=== PATIENT | female | born 1955 | race African-American/Black ===

== ENCOUNTER 2016-05-28 20:18 | Inpatient (IN) | payer MEDICARE, OTHER ==
[~2016-05-28] VITALS: Ht 175.3 cm; Wt 97.5 kg
[2016-05-29 04:15] VITALS: BP 145/75
[2016-05-29 08:00] VITALS: BP 153/93
[2016-05-29] MEDS: Heparin 5000 units/ml inj SUBQ SCH ×2 (09:00→20:39)
[2016-05-29] MEDS ORDERED: TRAZODONE HCL300 MG ORAL (11:03)
[2016-05-29] MEDS ORDERED: SENNA8.6 M2 PO (11:03)
[2016-05-29] MEDS ORDERED: NORCO 10-325 T1 EACH ORAL (11:03)
[2016-05-29] MEDS ORDERED: IBUPROFEN600 MG ORAL (11:03)
[2016-05-29] MEDS ORDERED: GABAPENTIN800 MG ORAL (11:03)
[2016-05-29 11:08] LABS: BASOPHILS % (AUTO) 1.2 % (0.0-2.0); EOSINOPHILS % (AUTO) 0.1 % (0.0-3.0); LYMPHOCYTES % (AUTO) 13.7 % (20.0-45.0); MEAN CORPUSCULAR HEMOGLOBIN 32.9 PG (27.0-31.0); MEAN CORPUSCULAR HGB CONC 33.8 G/DL (32.0-36.0); MEAN CORPUSCULAR VOLUME 97 FL (80-99); MEAN PLATELET VOLUME 6.5 FL (6.5-10.1); PLATELET COUNT 239 K/UL (150-450); RED BLOOD COUNT 4.68 M/UL (4.20-5.40); RED CELL DISTRIBUTION WIDTH 12.7 % (11.6-14.8); WHITE BLOOD COUNT 7.9 K/UL (4.8-10.8)
[2016-05-29] MEDS: NovoLOG Insulin Flexpen SUBQ SCH ×3 (11:48→20:38)
[2016-05-29 12:00] VITALS: BP 143/68
[2016-05-29 12:08] LABS: TROPONIN I < 0.30 ng/mL (<=0.30)
[2016-05-29] MEDS ORDERED: Norco 10mg/325mg tab ORAL PRN (12:15)
--- NOTE | 2016-05-29 12:22 | Consultation ---
History of Present Illness General Date patient seen: May 29, 2016 Chief Complaint: ALOC Referring physician: Dr. Streeter Reason for Consultation: inpatient management Present Illness HPI 60 year old female with hx of ETOH abuse and chronic back pain, who was found altered by her daughter. She was taken by paramedics to [facility] for further evaluation. Her CT of head was negative and apparently her etoh level was low too. Allergies: Coded Allergies: No Known Allergies (Unverified , 05/29/16) Medication History Scheduled Gabapentin* (Gabapentin*), 800 MG ORAL THREE TIMES A DAY, (Reported) Trazodone Hcl (Trazodone Hcl), 300 MG ORAL BEDTIME, (Reported) Scheduled PRN Hydrocodone Bit/Acetaminophen 10-325* ([place] 10-325*), 1 TAB ORAL Q4H PRN for For Pain, (Reported) Ibuprofen* (Motrin*), 800 MG ORAL THREE TIMES A DAY PRN for For Pain, (Reported) Sennosides (Senna), 8.6 MG PO TWICE A DAY PRN for Constipation, (Reported) Patient History Healthcare decision maker Resuscitation status Full Code Advanced Directive on File Past Medical/Surgical History Past Medical/Surgical History: (1) Back pain (2) ETOH abuse Review of Systems All Other Systems: negative except mentioned in HPI Physical Exam Lines, tubes and drains: peripheral HEENT: atraumatic, anicteric Neck: non-tender, normal alignment Respiratory/Chest: chest wall non-tender, lungs clear, decreased breath sounds Cardiovascular/Chest: normal peripheral pulses, normal rate, regular rhythm, no gallop/murmur Abdomen: normal bowel sounds, non tender Last 24 Hour Vital Signs Date Time Temp Pulse Resp B/P Pulse Ox O2 Delivery O2 Flow Rate FiO2 05/29/16 08:31 91 153/73 05/29/16 08:00 63 05/29/16 08:00 96.8 91 18 153/93 97 05/29/16 04:15 59 05/29/16 04:15 98.6 64 20 145/75 96 Room Air Intake and Output 05/28/16 05/29/16 19:00 07:00 Output Total 200 ml Balance -200 ml Output Urine Total 200 ml # Bowel Movements 2 Laboratory Tests Test 05/29/16 10:35 White Blood Count 7.9 K/UL (4.8-10.8) Red Blood Count 4.68 M/UL (4.20-5.40) Hemoglobin 15.4 G/DL (12.0-16.0) Hematocrit 45.6 % (37.0-47.0) Mean Corpuscular Volume 97 FL (80-99) Mean Corpuscular Hemoglobin 32.9 PG (27.0-31.0) H Mean Corpuscular Hemoglobin Concent 33.8 G/DL (32.0-36.0) Red Cell Distribution Width 12.7 % (11.6-14.8) Platelet Count 239 K/UL (150-450) Mean Platelet Volume 6.5 FL (6.5-10.1) Neutrophils (%) (Auto) 79.0 % (45.0-75.0) H Lymphocytes (%) (Auto) 13.7 % (20.0-45.0) L Monocytes (%) (Auto) 6.0 % (1.0-10.0) Eosinophils (%) (Auto) 0.1 % (0.0-3.0) Basophils (%) (Auto) 1.2 % (0.0-2.0) Sodium Level Pending Potassium Level Pending Chloride Level Pending Carbon Dioxide Level Pending Blood Urea Nitrogen Pending Creatinine Pending Estimat Glomerular Filtration Rate Pending Glucose Level Pending Calcium Level Pending Phosphorus Level Pending Magnesium Level Pending Ammonia Pending Troponin I < 0.30 ng/mL (<=0.30) Pro-B-Type Natriuretic Peptide Pending Height (Feet): 5 Height (Inches): 9.00 Weight (Pounds): 215 Medications Current Medications Medications (Trade) Dose Ordered Sig/Dustin Route PRN Reason Start Time Stop Time Status Last Admin Dose Admin Acetaminophen (Tylenol) 650 mg Q4H PRN ORAL Mild Pain/Temp > 100.5 05/29/16 07:30 06/28/16 07:29 Acetaminophen/ Hydrocodone Bitart ([place] 10/325) 1 ea Q4H PRN ORAL Moderate Pain (Pain Scale 4-6) 05/29/16 12:15 06/05/16 12:14 Amlodipine Besylate (Norvasc) 5 mg DAILY ORAL 05/29/16 09:00 06/28/16 08:59 05/29/16 08:31 Clonidine HCl (Catapres) 0.1 mg Q4H PRN ORAL sbp more than 160 05/29/16 12:15 06/28/16 12:14 Dextrose (Dextrose 50%) STAT PRN IV Hypoglycemia 05/29/16 07:30 06/28/16 07:29 Gabapentin (Neurontin) 800 mg THREE TIMES A DAY ORAL 05/29/16 13:00 06/28/16 12:59 Heparin Sodium (Porcine) (Heparin 5000 units/ml) 5,000 units EVERY 12 HOURS SUBQ 05/29/16 09:00 06/28/16 08:59 Insulin Aspart (NovoLOG) BEFORE MEALS AND HS SUBQ 05/29/16 11:30 06/28/16 11:29 05/29/16 11:48 Trazodone HCl (Desyrel) 300 mg BEDTIME ORAL 05/29/16 21:00 06/28/16 20:59 Assessment/Plan Problem List: (1) Acute encephalopathy ICD Codes: G93.40 - Encephalopathy, unspecified SNOMED: 5003563 (2) Diarrhea ICD Codes: R19.7 - Diarrhea, unspecified SNOMED: 23737044 (3) Back pain ICD Codes: M54.9 - Dorsalgia, unspecified SNOMED: 443265568 (4) ETOH abuse ICD Codes: F10.10 - Alcohol abuse, uncomplicated SNOMED: 70032339, 70800157 Assessment/Plan close neuro f/u psych evaluation, Dr. Sage called anti-diarrhea med/surg check electrolytes can be discharged in 1-2 days. CARL LIZARRAGA May 29, 2016 12:22
[2016-05-29 12:25] LABS: MAGNESIUM 1.7 mg/dL (1.7-2.5)
[2016-05-29 12:27] LABS: ANION GAP 17 (5-15); CALCIUM 9.7 mg/dL (8.6-10.2); CARBON DIOXIDE 21 mEQ/L (20-30); CHLORIDE 102 mEQ/L (98-107); CREATININE 0.6 mg/dL (0.5-0.9); GLOMERULAR FILTRATION RATE > 60 mL/min (>60); HEMOLYSIS 10; POTASSIUM 4.1 mEQ/L (3.4-4.9); SODIUM 140 mEQ/L (135-145)
[2016-05-29] MEDS ORDERED: Lomotil 2.5mg tab ORAL PRN (13:00)
[2016-05-29] MEDS ORDERED: Phospha 250 Neutral tab ORAL ONE (14:00)
[2016-05-29 15:48] VITALS: BP 167/89
--- NOTE | 2016-05-29 15:50 | History & Physical ---
History and Physical History & Physicial Dictated for Int Med-Dr Albrecht no. [id number]. NATALIO WHITTINGTON May 29, 2016 15:50
--- NOTE | 2016-05-29 17:12 | Neurology Progress Note ---
Objective Physical Exam Last Vital Signs Date Time Temp Pulse Resp B/P Pulse Ox O2 Delivery O2 Flow Rate FiO2 05/29/16 15:48 97.8 89 21 167/89 97 Room Air Laboratory Tests Test 05/29/16 10:35 White Blood Count 7.9 K/UL (4.8-10.8) Red Blood Count 4.68 M/UL (4.20-5.40) Hemoglobin 15.4 G/DL (12.0-16.0) Hematocrit 45.6 % (37.0-47.0) Mean Corpuscular Volume 97 FL (80-99) Mean Corpuscular Hemoglobin 32.9 PG (27.0-31.0) H Mean Corpuscular Hemoglobin Concent 33.8 G/DL (32.0-36.0) Red Cell Distribution Width 12.7 % (11.6-14.8) Platelet Count 239 K/UL (150-450) Mean Platelet Volume 6.5 FL (6.5-10.1) Neutrophils (%) (Auto) 79.0 % (45.0-75.0) H Lymphocytes (%) (Auto) 13.7 % (20.0-45.0) L Monocytes (%) (Auto) 6.0 % (1.0-10.0) Eosinophils (%) (Auto) 0.1 % (0.0-3.0) Basophils (%) (Auto) 1.2 % (0.0-2.0) Sodium Level 140 mEQ/L (135-145) Potassium Level 4.1 mEQ/L (3.4-4.9) Chloride Level 102 mEQ/L (98-107) Carbon Dioxide Level 21 mEQ/L (20-30) Anion Gap 17 (5-15) H Blood Urea Nitrogen 11 mg/dL (7-23) Creatinine 0.6 mg/dL (0.5-0.9) Estimat Glomerular Filtration Rate > 60 mL/min (>60) Glucose Level 149 mg/dL (74-106) H Calcium Level 9.7 mg/dL (8.6-10.2) Phosphorus Level 2.0 mg/dL (2.5-4.8) L Magnesium Level 1.7 mg/dL (1.7-2.5) Ammonia Pending Troponin I < 0.30 ng/mL (<=0.30) Pro-B-Type Natriuretic Peptide 940 pg/mL (0-125) H Impression/Recommendations Problems: (1) TGA (transient global amnesia) (2) r/o toxic encephalopathy (3) Back pain Recommendations # [id number] MITCHELL LUX May 29, 2016 17:12
[2016-05-29] MEDS ORDERED: Thiamine 100mg tab ORAL SCH (18:00)
[2016-05-29] MEDS ORDERED: Aspirin Baby 81mg NG SCH (18:00)
[2016-05-29 20:00] VITALS: BP 155/75
[2016-05-29] MEDS ORDERED: TraZODone 100mg tab ORAL SCH (21:00)
--- NOTE | 2016-05-29 23:17 | History and Physical Report ---
DATE OF ADMISSION: 05/29/[address] Albrecht. CHIEF COMPLAINT: The patient is a 60-year-old female, presents with chief complaint of altered mental status. HISTORY OF PRESENT ILLNESS: Much of the history and physical is obtained from the patient's granddaughter who is at the bedside. The patient herself is somewhat altered. History of the present illness began on 05/28/2016. The patient currently lives alone. The patient's son went by to visit his mother. The patient's son found his mother to be unresponsive. There were empty bottles of wine lying about. The patient initially presented to [facility] emergency room. The patient was transferred to [facility] secondary to insurance reasons. The patient is admitted for altered mental status to rule out acute cerebrovascular accident. PAST MEDICAL HISTORY: 1. Significant for depression. 2. Anemia. PAST SURGICAL HISTORY: Significant for laparoscopic cholecystectomy. CURRENT MEDICATIONS: 1. Gabapentin of an unknown dose daily. 2. Wellbutrin of an unknown dose daily. 3. [place] of an unknown dose daily. 4. Vitamin D2 of an unknown dose daily. 5. Iron sulfate of unknown dose daily. ALLERGIES: No known drug allergies. SOCIAL HISTORY: The patient is single and lives alone. The patient admits to tobacco use one pack per day. The patient admits to alcohol use of couple bottles of wine daily. The patient denies other drug abuse. PHYSICAL EXAMINATION: VITAL SIGNS: Temperature 98.6, respirations 20, pulse 59 to 64, and blood pressure 145/75. GENERAL: The patient is a well-developed and well-nourished female, in no apparent distress. HEENT: Eyes, pupils are equal and responsive to light and accommodation. Extraocular movements are intact. NECK: Supple without lymphadenopathy. CHEST: Lungs are clear to auscultation bilaterally without wheezes or rales. CARDIOVASCULAR: Regular rhythm and rate. S1 and S2 normal without murmurs, rubs, or gallops. ABDOMEN: Soft and benign. . Positive bowel sounds. No evidence of hepatosplenomegaly. Currently, no rebound or guarding. EXTREMITIES: Negative for clubbing, cyanosis, or edema. RECTAL: Refused. GENITALIA: Refused. NEUROLOGIC: Cranial nerves II through XII are grossly intact without focal deficits. Motor strength is 5/5 bilaterally. Deep tendon reflexes are 2+ plantar. LABORATORY STUDIES: WBC 5.6, hemoglobin 13.9, hematocrit 40.4, and platelets 222,000. Sodium 136, potassium 4.7, chloride 105, CO2 of 23, BUN 14, creatinine 0.82, and glucose 119. Urine drug screen was positive for opiates and benzodiazepines. Serum alcohol level was less than 10. ASSESSMENT: This is a 60-year-old female with: 1. Altered mental status. 2. Confusion. 3. History of chronic anemia. 4. History depression. TREATMENT: 1. Altered mental status. An initial CT scan of the brain at [facility] failed to demonstrate acute bleed or stroke. An MRI of the brain is pending. Carotid duplex and Dopplers are pending at this time. A Neurology consultation pending with Dr. Staton. Differential includes acute cerebrovascular accident versus opiate/benzodiazepine overdose. 2. Anemia. Continue iron supplements. 3. Depression. Wellbutrin will be held at this time secondary to altered mental status. Dameon Streeter M.D. DR: HAO JOB#: [id number] CC:
[2016-05-30 00:19] VITALS: BP 144/69
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
[2016-05-30 04:00] VITALS: BP 155/88
[2016-05-30] MEDS ORDERED: Lomotil 2.5mg tab ORAL PRN (05:00)
[2016-05-30] MEDS: NovoLOG Insulin Flexpen SUBQ SCH ×4 (06:17→21:54)
[2016-05-30 08:00] VITALS: BP 167/91
[2016-05-30 08:10] LABS: BASOPHILS % (AUTO) 0.9 % (0.0-2.0); LYMPHOCYTES % (AUTO) 14.1 % (20.0-45.0); MEAN CORPUSCULAR HGB CONC 34.1 G/DL (32.0-36.0); MEAN CORPUSCULAR VOLUME 97 FL (80-99); MEAN PLATELET VOLUME 6.4 FL (6.5-10.1); MONOCYTES % (AUTO) 5.1 % (1.0-10.0); NEUTROPHILS % (AUTO) 79.9 % (45.0-75.0); PLATELET COUNT 248 K/UL (150-450); RED BLOOD COUNT 5.03 M/UL (4.20-5.40); RED CELL DISTRIBUTION WIDTH 12.8 % (11.6-14.8); WHITE BLOOD COUNT 9.9 K/UL (4.8-10.8)
[2016-05-30 08:30] LABS: ALANINE AMINOTRANSFERASE 10 U/L (3-33); ALBUMIN/GLOBULIN RATIO 1.7 (1.0-2.7); ANION GAP 17 (5-15); ASPARTATE AMINO TRANSFERASE 18 U/L (5-40); CALCIUM 9.6 mg/dL (8.6-10.2); CARBON DIOXIDE 26 mEQ/L (20-30); CHLORIDE 96 mEQ/L (98-107); CREATININE 0.6 mg/dL (0.5-0.9); GLOMERULAR FILTRATION RATE > 60 mL/min (>60); HEMOLYSIS 3; MAGNESIUM 1.5 mg/dL (1.7-2.5); PHOSPHORUS 3.3 mg/dL (2.5-4.8); POTASSIUM 3.6 mEQ/L (3.4-4.9); PROTHROMBIN TIME 10.3 SEC (9.30-11.50); SODIUM 139 mEQ/L (135-145); TOTAL PROTEIN 6.7 g/dL (6.6-8.7)
[2016-05-30 09:18] LABS: TROPONIN I < 0.30 ng/mL (<=0.30)
[2016-05-30] MEDS: Thiamine 100mg tab ORAL SCH (09:26)
[2016-05-30] MEDS: Aspirin Baby 81mg NG SCH (09:26)
[2016-05-30] MEDS: Heparin 5000 units/ml inj SUBQ SCH ×2 (09:33→21:53)
[2016-05-30 12:00] VITALS: BP 173/100
--- NOTE | 2016-05-30 12:24 | Internal Med Progress Note ---
Subjective Date of Service: May 30, 2016 Physician Name Dameon Whittington Attending Physician Jose Albrecht MD Current Medications Medications (Trade) Dose Ordered Sig/Dustin Route PRN Reason Start Time Stop Time Status Last Admin Dose Admin Acetaminophen (Tylenol) 650 mg Q4H PRN ORAL Mild Pain/Temp > 100.5 05/30/16 03:30 06/29/16 03:29 Acetaminophen/ Hydrocodone Bitart ([place] 10/325) 1 ea Q4H PRN ORAL Moderate Pain (Pain Scale 4-6) 05/30/16 04:15 06/06/16 04:14 Amlodipine Besylate (Norvasc) 5 mg DAILY ORAL 05/30/16 09:00 06/29/16 08:59 05/30/16 09:26 Aspirin (ASA) 81 mg DAILY NG 05/30/16 09:00 06/29/16 08:59 05/30/16 09:26 Clonidine HCl (Catapres) 0.1 mg Q4H PRN ORAL sbp more than 160 05/30/16 04:15 06/29/16 04:14 05/30/16 11:45 Dextrose (Dextrose 50%) STAT PRN IV Hypoglycemia 05/30/16 07:30 06/29/16 07:29 Diphenoxylate HCl/ Atropine (Lomotil) 2.5 mg Q4H PRN ORAL Diarrhea 05/30/16 05:00 06/29/16 04:59 Gabapentin (Neurontin) 800 mg THREE TIMES A DAY ORAL 05/30/16 09:00 06/29/16 08:59 05/30/16 09:26 Heparin Sodium (Porcine) (Heparin 5000 units/ml) 5,000 units EVERY 12 HOURS SUBQ 05/30/16 09:00 06/29/16 08:59 05/30/16 09:33 Insulin Aspart (NovoLOG) BEFORE MEALS AND HS SUBQ 05/30/16 06:30 06/29/16 06:29 05/30/16 11:44 Ondansetron HCl (Zofran) 4 mg Q4H PRN IVP Nausea & Vomiting 05/30/16 02:45 06/29/16 02:44 Thiamine HCl (Vitamin B1) 100 mg DAILY ORAL 05/30/16 09:00 06/29/16 08:59 05/30/16 09:26 Trazodone HCl (Desyrel) 300 mg BEDTIME ORAL 05/30/16 21:00 06/29/16 20:59 Allergies: Coded Allergies: No Known Allergies (Unverified , 05/29/16) ROS Limited/Unobtainable: No Constitutional: Reports: no symptoms HEENT: Reports: no symptoms Cardiovascular: Reports: no symptoms Respiratory: Reports: no symptoms Gastrointestinal/Abdominal: Reports: no symptoms Genitourinary: Reports: no symptoms Neurologic/Psychiatric: Reports: no symptoms Subjective 60 YO F admitted for altered mental status and polysubstance abuse. Cover for Int Med-Dr Albrecht. Still confused. Objective Last Vital Signs Date Time Temp Pulse Resp B/P Pulse Ox O2 Delivery O2 Flow Rate FiO2 05/30/16 11:45 167/91 05/30/16 10:25 99.4 05/30/16 09:26 79 05/30/16 08:00 20 99 Room Air General Appearance: WD/WN, no apparent distress EENT: PERRL/EOMI, normal ENT inspection Neck: non-tender, normal alignment, supple, normal inspection Cardiovascular: normal peripheral pulses, normal rate, regular rhythm, no gallop/murmur, no JVD Respiratory/Chest: chest wall non-tender, lungs clear, normal breath sounds, no respiratory distress, no accessory muscle use Abdomen: normal bowel sounds, non tender, soft, no organomegaly, no mass Extremities: normal range of motion 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, no motor/sensory deficits Skin: normal pigmentation, warm/dry Laboratory Tests Test 05/30/16 07:50 White Blood Count 9.9 K/UL (4.8-10.8) Red Blood Count 5.03 M/UL (4.20-5.40) Hemoglobin 16.6 G/DL (12.0-16.0) H Hematocrit 48.6 % (37.0-47.0) H Mean Corpuscular Volume 97 FL (80-99) Mean Corpuscular Hemoglobin 33.0 PG (27.0-31.0) H Mean Corpuscular Hemoglobin Concent 34.1 G/DL (32.0-36.0) Red Cell Distribution Width 12.8 % (11.6-14.8) Platelet Count 248 K/UL (150-450) Mean Platelet Volume 6.4 FL (6.5-10.1) L Neutrophils (%) (Auto) 79.9 % (45.0-75.0) H Lymphocytes (%) (Auto) 14.1 % (20.0-45.0) L Monocytes (%) (Auto) 5.1 % (1.0-10.0) Eosinophils (%) (Auto) 0.0 % (0.0-3.0) Basophils (%) (Auto) 0.9 % (0.0-2.0) Prothrombin Time 10.3 SEC (9.30-11.50) Prothromb Time International Ratio 1.0 (0.9-1.1) Activated Partial Thromboplast Time 25 SEC (23-33) Sodium Level 139 mEQ/L (135-145) Potassium Level 3.6 mEQ/L (3.4-4.9) Chloride Level 96 mEQ/L (98-107) L Carbon Dioxide Level 26 mEQ/L (20-30) Anion Gap 17 (5-15) H Blood Urea Nitrogen 9 mg/dL (7-23) Creatinine 0.6 mg/dL (0.5-0.9) Estimat Glomerular Filtration Rate > 60 mL/min (>60) Glucose Level 155 mg/dL (74-106) H Calcium Level 9.6 mg/dL (8.6-10.2) Phosphorus Level 3.3 mg/dL (2.5-4.8) Magnesium Level 1.5 mg/dL (1.7-2.5) L Total Bilirubin 0.4 mg/dL (0.0-1.2) Aspartate Amino Transf (AST/SGOT) 18 U/L (5-40) Alanine Aminotransferase (ALT/SGPT) 10 U/L (3-33) Alkaline Phosphatase 91 U/L (35-104) Troponin I < 0.30 ng/mL (<=0.30) Total Protein 6.7 g/dL (6.6-8.7) Albumin 4.3 g/dL (3.5-5.2) Globulin 2.4 g/dL Albumin/Globulin Ratio 1.7 (1.0-2.7) Intake and Output 05/29/16 05/30/16 19:00 07:00 Output Total 1160 ml 1700 ml Balance -1160 ml -1700 ml Output Urine Total 1160 ml 1700 ml # Voids 1 # Bowel Movements 6 Assessment/Plan Problem List: (1) Confusion Assessment & Plan: Await MRI brain. See neurology note. ? due to polysubstance abuse? (2) Benzodiazepine abuse (3) Opiate abuse, continuous (4) Anemia (5) Depression (6) Altered mental state Assessment & Plan: ? due to polysubstance abuse? (7) Acute encephalopathy (8) ETOH abuse Assessment & Plan: Await psych consult. Status: not improved DAMEON WHITTINGTON May 30, 2016 12:24
[2016-05-30 16:00] VITALS: BP 163/102
[2016-05-30 19:29] VITALS: BP 152/88
[2016-05-30] MEDS ORDERED: TraZODone 100mg tab ORAL SCH (21:00)
[2016-05-30] MEDS: TraZODone 100mg tab ORAL SCH (21:52)
[2016-05-30] MEDS: Norco 10mg/325mg tab ORAL PRN (21:52)
--- NOTE | 2016-05-30 21:59 | Pulmonology Progress Note ---
Assessment/Plan Problems: (1) Acute encephalopathy (2) Diarrhea (3) Back pain (4) ETOH abuse Assessment/Plan Assessment/Plan close neuro f/u psych evaluation, Dr. Sage called anti-diarrhea med/surg check electrolytes can be discharged in 1-2 days. Subjective ROS Limited/Unobtainable: Yes Constitutional: Reports: anorexia, fever Gastrointestinal/Abdominal: Reports: bloating, blood in stool, diarrhea, nausea , vomiting Neurologic: Reports: confusion, weakness Allergies: Coded Allergies: No Known Allergies (Unverified , 05/29/16) Objective Last 24 Hour Vital Signs Date Time Temp Pulse Resp B/P Pulse Ox O2 Delivery O2 Flow Rate FiO2 05/30/16 19:30 100.6 05/30/16 19:29 100.6 87 20 152/88 99 Room Air 05/30/16 16:00 98.2 81 20 163/102 97 Room Air 05/30/16 12:00 98.6 84 20 173/100 97 Room Air 05/30/16 11:45 167/91 05/30/16 09:26 79 155/88 05/30/16 08:00 98.6 86 20 167/91 99 Room Air 05/30/16 04:00 99.4 79 20 155/88 100 Room Air 05/30/16 00:19 98.7 76 18 144/69 99 Room Air Intake and Output 05/29/16 05/30/16 19:00 07:00 Output Total 1160 ml 1700 ml Balance -1160 ml -1700 ml Output Urine Total 1160 ml 1700 ml # Voids 1 # Bowel Movements 6 General Appearance: no acute distress HEENT: normocephalic, atraumatic, anicteric, mucous membranes moist Respiratory/Chest: chest wall non-tender, decreased breath sounds, accessory muscle use Breasts: no masses Cardiovascular: normal peripheral pulses, normal rate, regular rhythm Abdomen: hyperactive bowel sounds, distended, guarding, tender, rebound tenderness Genitourinary: normal external genitalia Extremities: no cyanosis 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, no motor/sensory deficits Laboratory Tests 05/30/16 07:50: White Blood Count 9.9, Red Blood Count 5.03, Hemoglobin 16.6H, Hematocrit 48.6H , Mean Corpuscular Volume 97, Mean Corpuscular Hemoglobin 33.0H, Mean Corpuscular Hemoglobin Concent 34.1, Red Cell Distribution Width 12.8, Platelet Count 248, Mean Platelet Volume 6.4L, Neutrophils (%) (Auto) 79.9H, Lymphocytes (%) (Auto) 14.1L, Monocytes (%) (Auto) 5.1, Eosinophils (%) (Auto) 0.0, Basophils (%) (Auto) 0.9, Prothrombin Time 10.3, Prothromb Time International Ratio 1.0, Activated Partial Thromboplast Time 25, Sodium Level 139, Potassium Level 3.6, Chloride Level 96L, Carbon Dioxide Level 26, Anion Gap 17H, Blood Urea Nitrogen 9, Creatinine 0.6, Estimat Glomerular Filtration Rate > 60, Glucose Level 155H, Calcium Level 9.6, Phosphorus Level 3.3, Magnesium Level 1.5L, Total Bilirubin 0.4, Aspartate Amino Transf (AST/SGOT) 18, Alanine Aminotransferase (ALT/SGPT) 10, Alkaline Phosphatase 91, Troponin I < 0.30, Total Protein 6.7, Albumin 4.3, Globulin 2.4, Albumin/Globulin Ratio 1.7 Current Medications Medications (Trade) Dose Ordered Sig/Dustin Route PRN Reason Start Time Stop Time Status Last Admin Dose Admin Acetaminophen (Tylenol) 650 mg Q4H PRN ORAL Mild Pain/Temp > 100.5 05/30/16 03:30 06/29/16 03:29 Acetaminophen/ Hydrocodone Bitart ([place] 10/325) 1 ea Q4H PRN ORAL Moderate Pain (Pain Scale 4-6) 05/30/16 04:15 06/06/16 04:14 05/30/16 21:52 Amlodipine Besylate (Norvasc) 5 mg DAILY ORAL 05/30/16 09:00 06/29/16 08:59 05/30/16 09:26 Aspirin (ASA) 81 mg DAILY NG 05/30/16 09:00 06/29/16 08:59 05/30/16 09:26 Clonidine HCl (Catapres) 0.1 mg Q4H PRN ORAL sbp more than 160 05/30/16 04:15 06/29/16 04:14 05/30/16 11:45 Dextrose (Dextrose 50%) STAT PRN IV Hypoglycemia 05/30/16 07:30 06/29/16 07:29 Diazepam (Valium) 10 mg Q3H PRN ORAL alcohol wd, anxiety 05/30/16 12:45 06/06/16 12:44 Diphenoxylate HCl/ Atropine (Lomotil) 2.5 mg Q4H PRN ORAL Diarrhea 05/30/16 05:00 06/29/16 04:59 Gabapentin (Neurontin) 800 mg THREE TIMES A DAY ORAL 05/30/16 09:00 06/29/16 08:59 05/30/16 18:31 Heparin Sodium (Porcine) (Heparin 5000 units/ml) 5,000 units EVERY 12 HOURS SUBQ 05/30/16 09:00 06/29/16 08:59 05/30/16 21:53 Insulin Aspart (NovoLOG) BEFORE MEALS AND HS SUBQ 05/30/16 06:30 06/29/16 06:29 05/30/16 21:54 Olanzapine (ZyPREXA) 5 mg BEDTIME ORAL 05/30/16 21:00 06/29/16 20:59 05/30/16 21:52 Ondansetron HCl (Zofran) 4 mg Q4H PRN IVP Nausea & Vomiting 05/30/16 02:45 06/29/16 02:44 Thiamine HCl (Vitamin B1) 100 mg DAILY ORAL 05/30/16 09:00 06/29/16 08:59 05/30/16 09:26 Trazodone HCl (Desyrel) 200 mg BEDTIME ORAL 05/30/16 21:00 06/29/16 20:59 05/30/16 21:52 CARL LIZARRAGA May 30, 2016 21:59
--- NOTE | 2016-05-30 23:07 | Consultation ---
DATE OF CONSULTATION: 05/30/2016 HISTORY OF PRESENT ILLNESS: The patient is a 60-year-old female with a history of polysubstance use disorder including alcohol dependence, has been admitted to the hospital due to altered mental status and confusion. Apparently, the patient had an accidental fall with a head trauma without loss of consciousness and prior to the fall, she became confused and did not know who she was, she was confused and disoriented. Then, she found herself in the hospital. Apparently, the patient has a history of alcohol dependence and chronic back pain. She was found by her daughter in a state of confusion and disorientation. She was taken by paramedics to [facility] and then transported to the emergency room at [place]. Her CT head was negative and apparently, her alcohol level was low. During the evaluation, the patient is a poor historian. She is still disorganized and has impairment of constant memory and attention and presents with anxiety. PAST PSYCHIATRIC HISTORY: Significant for depression and anxiety. PAST MEDICAL HISTORY: Anemia. ALLERGIES: No known drug allergies. MEDICATIONS: Medications include gabapentin, Wellbutrin, [place], vitamins, and iron sulfate. SUBSTANCE ABUSE HISTORY: Significant for tobacco dependence as well as alcohol use two bottles of wine on a daily basis. No illicit drug use. MENTAL STATUS EXAMINATION: The patient is still disoriented, however, responsive. She is well developed, well nourished, black female, in no apparent distress. Mood is anxious. Affect is constricted. Congruent mood. Thought process is concrete. Thought content, no suicidal or homicidal ideation. Cognition is impaired. ASSESSMENT: AXIS I Delirium, alcohol dependence, and major depressive disorder. AXIS II Deferred. AXIS III Rule out acute cerebrovascular accident. AXIS IV Low. AXIS V Global assessment of functioning is 20. PLAN: 1. We will start the patient on low-dose of antipsychotics like olanzapine 5 mg h.s. 2. We will decrease the trazodone to 200 mg h.s. 3. She is being treated with thiamine and folic acid as well as she is covered for . 4. Also start Valium for alcohol withdrawal. Mitali Sage M.D. DR: ZEENAT JOB#: [id number] CC:
[2016-05-31] VITALS: BP 170/102
[2016-05-31] MEDS: Norco 10mg/325mg tab ORAL PRN (03:23)
[2016-05-31 04:00] VITALS: BP 135/86
[2016-05-31 06:28] LABS: BASOPHILS % (AUTO) 1.2 % (0.0-2.0); EOSINOPHILS % (AUTO) 0.8 % (0.0-3.0); LYMPHOCYTES % (AUTO) 26.5 % (20.0-45.0); MEAN CORPUSCULAR HEMOGLOBIN 32.8 PG (27.0-31.0); MEAN CORPUSCULAR HGB CONC 34.2 G/DL (32.0-36.0); MEAN CORPUSCULAR VOLUME 96 FL (80-99); MEAN PLATELET VOLUME 5.9 FL (6.5-10.1); MONOCYTES % (AUTO) 8.3 % (1.0-10.0); NEUTROPHILS % (AUTO) 63.2 % (45.0-75.0); PLATELET COUNT 235 K/UL (150-450); RED BLOOD COUNT 4.46 M/UL (4.20-5.40); RED CELL DISTRIBUTION WIDTH 12.6 % (11.6-14.8); WHITE BLOOD COUNT 8.9 K/UL (4.8-10.8)
[2016-05-31] MEDS: NovoLOG Insulin Flexpen SUBQ SCH ×4 (06:33→21:41)
[2016-05-31 06:57] LABS: ANION GAP 15 (5-15); CALCIUM 9.2 mg/dL (8.6-10.2); CARBON DIOXIDE 28 mEQ/L (20-30); CHLORIDE 95 mEQ/L (98-107); CREATININE 0.7 mg/dL (0.5-0.9); GLOMERULAR FILTRATION RATE > 60 mL/min (>60); HEMOLYSIS 4; POTASSIUM 3.1 mEQ/L (3.4-4.9); SODIUM 138 mEQ/L (135-145)
[2016-05-31 07:22] VITALS: BP 142/87
[2016-05-31] MEDS: Aspirin Baby 81mg NG SCH (08:31)
[2016-05-31] MEDS: Thiamine 100mg tab ORAL SCH (08:31)
[2016-05-31] MEDS: Heparin 5000 units/ml inj SUBQ SCH ×2 (08:33→21:40)
[2016-05-31 12:00] VITALS: BP 110/66
--- NOTE | 2016-05-31 13:00 | Diagnostic Imaging Report ---
Indication: Altered mental status Technique: sagittal T1 fast spin echo, axial T1 and T2 FLAIR PROPELLER, axial T2 FS PROPELLER, T2* GRE, axial diffusion weighted images, post contrast axial and coronal T1 FLAIR PROPELLER images. ADC and exponential ADC maps generated Comparison: None Findings: . No abnormal areas of restricted diffusion to suggest acute infarction. No acute hemorrhage or edema. No mass effect nor midline shift. No abnormal contrast enhancement. Normal size ventricles and extra axial CSF spaces. Visualized orbits and sinuses are unremarkable. There are a few tiny nonspecific bilateral deep white matter T2 hyperintensities. Impression: 2 small nonspecific bilateral deep white matter T2 hyperintensities Negative for acute intracranial bleed, mass effect, infarct, or contrast enhancing lesion
--- NOTE | 2016-05-31 16:57 | Progress Note ---
DATE: 05/30/2016 SUBJECTIVE: The patient continues to be confused and disoriented. Mood at times is anxious. The patient is not able to be engaged in providing any history. MENTAL STATUS EXAMINATION: The patient continued to be disoriented and confused. Mood is neutral to anxious. Affect is flat. Congruent with mood. Thought process, there is a paucity of thought content. Cognition is impaired. Insight and judgment, nonexistent. PLAN: 1. The patient will be continued on olanzapine 5 mg at bedtime. 2. She is already covered with thiamine and folic acid. 3. Trazodone dosage was decreased and she will be continued on diazepam 10 mg every three hours p.r.n. We will continue to follow and readjust her medications. Mitali Sage M.D. DR: VENECIA JOB#: [id number] CC:
--- NOTE | 2016-05-31 17:13 | Pulmonology Progress Note ---
Assessment/Plan Problems: (1) Acute encephalopathy (2) Diarrhea (3) Back pain (4) ETOH abuse Assessment/Plan Plan IVF hydration Anti-e,emetics as needed Pain management Electrolytes monitored Subjective ROS Limited/Unobtainable: No Gastrointestinal/Abdominal: Reports: bloating, diarrhea, nausea Neurologic: Reports: confusion, weakness Allergies: Coded Allergies: No Known Allergies (Unverified , 05/29/16) Objective Last 24 Hour Vital Signs Date Time Temp Pulse Resp B/P Pulse Ox O2 Delivery O2 Flow Rate FiO2 05/31/16 13:24 97.9 05/31/16 12:00 97.9 76 18 110/66 97 Room Air 05/31/16 08:31 76 142/87 05/31/16 07:22 97.9 76 18 142/87 95 Room Air 05/31/16 04:00 97.7 78 20 135/86 97 Room Air 05/31/16 01:01 99.2 05/31/16 00:05 170/102 05/31/16 00:00 100.5 88 19 170/102 95 Room Air 05/30/16 22:51 100.6 05/30/16 19:29 100.6 87 20 152/88 99 Room Air Intake and Output 05/30/16 05/31/16 19:00 07:00 Intake Total 360 ml 480 ml Output Total 300 ml 625 ml Balance 60 ml -145 ml Intake Oral 360 ml 480 ml Output Urine Total 300 ml 625 ml # Bowel Movements 1 1 General Appearance: no acute distress HEENT: normocephalic, atraumatic Respiratory/Chest: chest wall non-tender, decreased breath sounds, accessory muscle use Breasts: no masses Cardiovascular: normal peripheral pulses, normal rate, regular rhythm, no JVD Abdomen: hyperactive bowel sounds, distended, guarding, tender, rebound tenderness Genitourinary: normal external genitalia Extremities: no cyanosis Skin: no rash, no lesions Neurologic/Psychiatric: policeman II-XII grossly normal, no motor/sensory deficits Microbiology Date/Time Source Procedure Growth Status 05/29/16 05:30 Nasal Nares Left MRSA Culture - Final NO METHICILLIN RESISTANT STAPH AUREUS... Complete 05/29/16 05:30 Rectum VRE Culture - Final NO VANCOMYCIN RESISTANT ENTEROCOCCUS ... Complete Laboratory Tests 05/31/16 04:55: White Blood Count 8.9, Red Blood Count 4.46, Hemoglobin 14.7, Hematocrit 42.9, Mean Corpuscular Volume 96, Mean Corpuscular Hemoglobin 32.8H, Mean Corpuscular Hemoglobin Concent 34.2, Red Cell Distribution Width 12.6, Platelet Count 235, Mean Platelet Volume 5.9L, Neutrophils (%) (Auto) 63.2, Lymphocytes (%) (Auto) 26.5, Monocytes (%) (Auto) 8.3, Eosinophils (%) (Auto) 0.8, Basophils (%) (Auto ) 1.2, Sodium Level 138, Potassium Level 3.1L, Chloride Level 95L, Carbon Dioxide Level 28, Anion Gap 15, Blood Urea Nitrogen 12, Creatinine 0.7, Estimat Glomerular Filtration Rate > 60, Glucose Level 128H, Calcium Level 9.2 Current Medications Medications (Trade) Dose Ordered Sig/Dustin Route PRN Reason Start Time Stop Time Status Last Admin Dose Admin Acetaminophen (Tylenol) 650 mg Q4H PRN ORAL Mild Pain/Temp > 100.5 05/30/16 03:30 06/29/16 03:29 05/31/16 00:02 Acetaminophen/ Hydrocodone Bitart ([place] 10/325) 1 ea Q4H PRN ORAL Moderate Pain (Pain Scale 4-6) 05/30/16 04:15 06/06/16 04:14 05/31/16 03:23 Amlodipine Besylate (Norvasc) 5 mg DAILY ORAL 05/30/16 09:00 06/29/16 08:59 05/31/16 08:31 Aspirin (ASA) 81 mg DAILY NG 05/30/16 09:00 06/29/16 08:59 05/31/16 08:31 Clonidine HCl (Catapres) 0.1 mg Q4H PRN ORAL sbp more than 160 05/30/16 04:15 06/29/16 04:14 05/31/16 00:05 Dextrose (Dextrose 50%) STAT PRN IV Hypoglycemia 05/30/16 07:30 06/29/16 07:29 Diazepam (Valium) 10 mg Q3H PRN ORAL alcohol wd, anxiety 05/30/16 12:45 06/06/16 12:44 Diphenoxylate HCl/ Atropine (Lomotil) 2.5 mg Q4H PRN ORAL Diarrhea 05/30/16 05:00 06/29/16 04:59 Gabapentin (Neurontin) 800 mg THREE TIMES A DAY ORAL 05/30/16 09:00 06/29/16 08:59 05/31/16 12:25 Heparin Sodium (Porcine) (Heparin 5000 units/ml) 5,000 units EVERY 12 HOURS SUBQ 05/30/16 09:00 06/29/16 08:59 05/31/16 08:33 Insulin Aspart (NovoLOG) BEFORE MEALS AND HS SUBQ 05/30/16 06:30 06/29/16 06:29 05/31/16 17:03 Olanzapine (ZyPREXA) 5 mg BEDTIME ORAL 05/30/16 21:00 06/29/16 20:59 05/30/16 21:52 Ondansetron HCl (Zofran) 4 mg Q4H PRN IVP Nausea & Vomiting 05/30/16 02:45 06/29/16 02:44 Thiamine HCl (Vitamin B1) 100 mg DAILY ORAL 05/30/16 09:00 06/29/16 08:59 05/31/16 08:31 Trazodone HCl (Desyrel) 200 mg BEDTIME ORAL 05/30/16 21:00 06/29/16 20:59 05/30/16 21:52 CARL LIZARRAGA May 31, 2016 17:13
[2016-05-31] MEDS ORDERED: Zolpidem 5mg tab ORAL PRN (18:15)
--- NOTE | 2016-05-31 18:16 | Internal Med Progress Note ---
Subjective Date of Service: May 31, 2016 Physician Name SylNatalio Attending Physician Jose Albrecht MD Current Medications Medications (Trade) Dose Ordered Sig/Dustin Route PRN Reason Start Time Stop Time Status Last Admin Dose Admin Acetaminophen (Tylenol) 650 mg Q4H PRN ORAL Mild Pain/Temp > 100.5 05/30/16 03:30 06/29/16 03:29 05/31/16 00:02 Acetaminophen/ Hydrocodone Bitart ([place] 10/325) 1 ea Q4H PRN ORAL Moderate Pain (Pain Scale 4-6) 05/30/16 04:15 06/06/16 04:14 05/31/16 03:23 Amlodipine Besylate (Norvasc) 5 mg DAILY ORAL 05/30/16 09:00 06/29/16 08:59 05/31/16 08:31 Aspirin (ASA) 81 mg DAILY NG 05/30/16 09:00 06/29/16 08:59 05/31/16 08:31 Clonidine HCl (Catapres) 0.1 mg Q4H PRN ORAL sbp more than 160 05/30/16 04:15 06/29/16 04:14 05/31/16 00:05 Dextrose (Dextrose 50%) STAT PRN IV Hypoglycemia 05/30/16 07:30 06/29/16 07:29 Diazepam (Valium) 10 mg Q3H PRN ORAL alcohol wd, anxiety 05/30/16 12:45 06/06/16 12:44 Diphenoxylate HCl/ Atropine (Lomotil) 2.5 mg Q4H PRN ORAL Diarrhea 05/30/16 05:00 06/29/16 04:59 Gabapentin (Neurontin) 800 mg THREE TIMES A DAY ORAL 05/30/16 09:00 06/29/16 08:59 05/31/16 17:43 Heparin Sodium (Porcine) (Heparin 5000 units/ml) 5,000 units EVERY 12 HOURS SUBQ 05/30/16 09:00 06/29/16 08:59 05/31/16 08:33 Insulin Aspart (NovoLOG) BEFORE MEALS AND HS SUBQ 05/30/16 06:30 06/29/16 06:29 05/31/16 17:03 Olanzapine (ZyPREXA) 5 mg BEDTIME ORAL 05/30/16 21:00 06/29/16 20:59 05/30/16 21:52 Ondansetron HCl (Zofran) 4 mg Q4H PRN IVP Nausea & Vomiting 05/30/16 02:45 06/29/16 02:44 Thiamine HCl (Vitamin B1) 100 mg DAILY ORAL 05/30/16 09:00 06/29/16 08:59 05/31/16 08:31 Trazodone HCl (Desyrel) 200 mg BEDTIME ORAL 05/30/16 21:00 06/29/16 20:59 05/30/16 21:52 Allergies: Coded Allergies: No Known Allergies (Unverified , 05/29/16) ROS Limited/Unobtainable: No Constitutional: Reports: no symptoms HEENT: Reports: no symptoms Cardiovascular: Reports: no symptoms Respiratory: Reports: no symptoms Gastrointestinal/Abdominal: Reports: no symptoms Genitourinary: Reports: no symptoms Neurologic/Psychiatric: Reports: no symptoms Subjective 60 YO F admitted for altered mental status and polysubstance abuse. Cover for Int Med-Dr Albrecht. Less confused. Objective Last Vital Signs Date Time Temp Pulse Resp B/P Pulse Ox O2 Delivery O2 Flow Rate FiO2 05/31/16 13:24 97.9 05/31/16 12:00 76 18 110/66 97 Room Air Laboratory Tests Test 05/31/16 04:55 White Blood Count 8.9 K/UL (4.8-10.8) Red Blood Count 4.46 M/UL (4.20-5.40) Hemoglobin 14.7 G/DL (12.0-16.0) Hematocrit 42.9 % (37.0-47.0) Mean Corpuscular Volume 96 FL (80-99) Mean Corpuscular Hemoglobin 32.8 PG (27.0-31.0) H Mean Corpuscular Hemoglobin Concent 34.2 G/DL (32.0-36.0) Red Cell Distribution Width 12.6 % (11.6-14.8) Platelet Count 235 K/UL (150-450) Mean Platelet Volume 5.9 FL (6.5-10.1) L Neutrophils (%) (Auto) 63.2 % (45.0-75.0) Lymphocytes (%) (Auto) 26.5 % (20.0-45.0) Monocytes (%) (Auto) 8.3 % (1.0-10.0) Eosinophils (%) (Auto) 0.8 % (0.0-3.0) Basophils (%) (Auto) 1.2 % (0.0-2.0) Sodium Level 138 mEQ/L (135-145) Potassium Level 3.1 mEQ/L (3.4-4.9) L Chloride Level 95 mEQ/L (98-107) L Carbon Dioxide Level 28 mEQ/L (20-30) Anion Gap 15 (5-15) Blood Urea Nitrogen 12 mg/dL (7-23) Creatinine 0.7 mg/dL (0.5-0.9) Estimat Glomerular Filtration Rate > 60 mL/min (>60) Glucose Level 128 mg/dL (74-106) H Calcium Level 9.2 mg/dL (8.6-10.2) Microbiology Date/Time Source Procedure Growth Status 05/29/16 05:30 Nasal Nares Left MRSA Culture - Final NO METHICILLIN RESISTANT STAPH AUREUS... Complete 05/29/16 05:30 Rectum VRE Culture - Final NO VANCOMYCIN RESISTANT ENTEROCOCCUS ... Complete Intake and Output 05/30/16 05/31/16 19:00 07:00 Intake Total 360 ml 480 ml Output Total 300 ml 625 ml Balance 60 ml -145 ml Intake Oral 360 ml 480 ml Output Urine Total 300 ml 625 ml # Bowel Movements 1 1 Objective General Appearance: WD/WN, no apparent distress EENT: PERRL/EOMI, normal ENT inspection Neck: non-tender, normal alignment, supple, normal inspection Cardiovascular: normal peripheral pulses, normal rate, regular rhythm, no gallop/murmur, no JVD Respiratory/Chest: chest wall non-tender, lungs clear, normal breath sounds, no respiratory distress, no accessory muscle use Abdomen: normal bowel sounds, non tender, soft, no organomegaly, no mass Extremities: normal range of motion Neurologic: clinical social worker II-XII grossly normal, no motor/sensory deficits Skin: normal pigmentation, warm/dry Assessment/Plan Problem List: (1) Confusion Assessment & Plan: MRI brain normal. See neurology note. ? due to polysubstance abuse? (2) Benzodiazepine abuse (3) Opiate abuse, continuous (4) Anemia (5) Depression (6) Altered mental state Assessment & Plan: ? due to polysubstance abuse? (7) Acute encephalopathy (8) ETOH abuse Assessment & Plan: See psych consult. Status: progressing Assessment/Plan D/C in am 06/01/16 if stable. NATALIO WHITTINGTON May 31, 2016 18:16
[2016-05-31 19:50] VITALS: BP 111/74
[2016-05-31] MEDS: TraZODone 100mg tab ORAL SCH (21:39)
[2016-06-01 00:22] VITALS: BP 112/62
[2016-06-01 04:00] VITALS: BP 113/66
[2016-06-01] MEDS: NovoLOG Insulin Flexpen SUBQ SCH (05:34)
[2016-06-01 07:22] LABS: BASOPHILS % (AUTO) 1.7 % (0.0-2.0); EOSINOPHILS % (AUTO) 2.3 % (0.0-3.0); LYMPHOCYTES % (AUTO) 32.5 % (20.0-45.0); MEAN CORPUSCULAR HEMOGLOBIN 32.9 PG (27.0-31.0); MEAN CORPUSCULAR HGB CONC 33.6 G/DL (32.0-36.0); MEAN CORPUSCULAR VOLUME 98 FL (80-99); MEAN PLATELET VOLUME 6.3 FL (6.5-10.1); MONOCYTES % (AUTO) 10.1 % (1.0-10.0); NEUTROPHILS % (AUTO) 53.4 % (45.0-75.0); PLATELET COUNT 247 K/UL (150-450); RED BLOOD COUNT 4.24 M/UL (4.20-5.40); WHITE BLOOD COUNT 7.3 K/UL (4.8-10.8)
[2016-06-01 08:18] LABS: ANION GAP 15 (5-15); CALCIUM 9.4 mg/dL (8.6-10.2); CARBON DIOXIDE 29 mEQ/L (20-30); CHLORIDE 98 mEQ/L (98-107); CREATININE 0.8 mg/dL (0.5-0.9); GLOMERULAR FILTRATION RATE > 60 mL/min (>60); HEMOLYSIS 4; POTASSIUM 3.6 mEQ/L (3.4-4.9); SODIUM 142 mEQ/L (135-145)
[2016-06-01] MEDS: Thiamine 100mg tab ORAL SCH (08:39)
[2016-06-01] MEDS: Aspirin Baby 81mg NG SCH (08:40)
[2016-06-01] MEDS: Heparin 5000 units/ml inj SUBQ SCH (08:44)
[2016-06-01 08:51] VITALS: BP 120/70
--- NOTE | 2016-06-01 15:32 | Discharge Summary ---
Discharge Summary Hospital Course Date of Admission May 29, 2016 at 03:57 Date of Discharge Jun 01, 2016 at 11:05 Admitting Diagnosis HPI Orin Vasquez is a 60 year old female who was admitted on May 29, 2016 at 03:57 for Altered Mental Status Hospital Course The patient was seen and examined at bedside and all new and available data was reviewed in the patients chart. Last 24 Hour Vital Signs Date Time Temp Pulse Resp B/P Pulse Ox O2 Delivery O2 Flow Rate FiO2 06/01/16 09:39 98.2 06/01/16 08:51 98.2 67 20 120/70 96 Room Air 06/01/16 08:40 70 113/66 06/01/16 04:00 98.1 70 19 113/66 96 Room Air 06/01/16 00:22 98.6 75 20 112/62 97 Room Air 05/31/16 19:50 97.9 80 18 111/74 99 Room Air General Appearance: WD/WN, no apparent distress, alert EENT: PERRL/EOMI, normal ENT inspection, Neck: non-tender, normal alignment, supple Cardiovascular: normal peripheral pulses, normal rate, regular rhythm, no gallop/murmur, no JVD Respiratory/Chest: chest wall non-tender, no respiratory distress, No rhonchi - Abdomen: normal bowel sounds, non tender, soft, no organomegaly, no mass Extremities: normal range of motion Neurologic: purchase analyst II-XII grossly normal, no motor/sensory deficits Skin: normal pigmentation, warm/dry Plan: DC home with (Patient was seen earlier today. Signature timestamp does not reflect patient encounter time) Jose Albrecht MD Discharge Discharge Disposition Patient was discharged to Home (01) Discharge Diagnoses: Jose Albrecht MD Jun 01, 2016 15:32
--- NOTE | 2016-06-06 16:19 | Diagnostic Imaging Report ---
APPROVED REPORT CPT Code: 27212 Vascular Symptoms Dizziness and Vertigo arteries. The Doppler spectral flow analysis indicates the degree of stenosis is minimal in the common, internal and external carotid arteries. VERTEBRAL - The vertebral arteries are patent, without evidence of stenosis or steal.
== END 2016-06-01 11:05 | disposition home or self-care (01) | DRG 72 ==
LOC: 2E 05-29 03:57 → 4W 05-30 02:10
DX: G93.40 Encephalopathy, unspecified (principal); E11.40 Type 2 diabetes mellitus with diabetic neuropathy, unspecified; F10.10 Alcohol abuse, uncomplicated; R19.7 Diarrhea, unspecified; F32.9 Major depressive disorder, single episode, unspecified; F11.10 Opioid abuse, uncomplicated; F13.10 Sedative, hypnotic or anxiolytic abuse, uncomplicated; F17.200 Nicotine dependence, unspecified, uncomplicated; D64.9 Anemia, unspecified; I10 Essential (primary) hypertension; E78.5 Hyperlipidemia, unspecified; G89.29 Other chronic pain; M54.9 Dorsalgia, unspecified; F41.9 Anxiety disorder, unspecified; Z91.81 History of falling; R41.0 Disorientation, unspecified; G45.4 Transient global amnesia
CPT/HCPCS: 36415; 70553; 80048; 80053; 82140; 82962; 83735; 83880; 84100; 84484; 85025; 85610; 85730; 87081; 93880; A9585; C9399; J1815; J8499